=== PATIENT | male | born 1980 | race Caucasian/White ===

== ENCOUNTER → 2017-03-19 | Outpatient (CLI) | payer OTHER ==
--- NOTE | 2017-03-19 14:14 | KCIC ---
PROCEDURE Three views right foot. HISTORY Pain for 4 days with no known injury. TECHNIQUE Three views of the right foot are submitted for review. COMPARISON None. FINDINGS There is no fracture or dislocation. There is no soft tissue swelling. There is a small spur developing at the insertion of the Achilles tendon. IMPRESSION Negative for fracture Electronically signed by: Isaias Valdivia MD (March 19, 2017 14:13:30)
== END | disposition home or self-care (01) ==
LOC: KCIC 09:55
PROVIDERS: ATTEND Nurse Practitioner Family
DX: M79.671 Pain in right foot (principal)
CPT/HCPCS: 73630

== ENCOUNTER → 2018-03-04 | Outpatient (CLI) | payer OTHER | END | disposition home or self-care (01) | LOC: KCIC 10:01 | DX: M17.12 Unilateral primary osteoarthritis, left knee (principal); M25.762 Osteophyte, left knee | CPT/HCPCS: 73562 ==